=== PATIENT | female | born 1995 | race African-American/Black ===

== ENCOUNTER 2017-08-31 18:40 | Emergency (ER) | payer OTHER ==
[~2017-08-31] VITALS: Ht 152.4 cm; Wt 45.2 kg
[2017-08-31 22:45] LABS: HEMATOCRIT 37.4 % (36.0-46.0); HEMOGLOBIN 11.8 G/DL (11.9-15.5); MCH 24.5 PG (29.0-34.0); MCHC 31.6 G/DL (30.0-36.0); MCV 77.8 FL (83-99); PLATELET COUNT 363 K/uL (156-360); RBC DIS.WIDTH-CV 15.2 % (11.8-14.6); RBC DIS.WIDTH-SD 42.5 % (39-53); RED BLOOD COUNT 4.81 M/uL (3.80-5.20); WHITE BLOOD COUNT 10.9 K/uL (4.1-10.2)
[2017-08-31 23:00] LABS: ALBUMIN 4.7 g/dL (3.2-4.8); CHLORIDE 108 mEq/L (99-109); POTASSIUM 3.9 mEq/L (3.7-5.4); SODIUM 142 mEq/L (136-147)
[2017-08-31 23:02] LABS: GLUCOSE 106 mg/dL (70-99)
[2017-08-31 23:03] LABS: TOTAL PROTEIN 8.1 g/dL (6.4-8.3)
[2017-08-31 23:04] LABS: TOTAL BILIRUBIN 0.5 mg/dL (0.0-1.0)
[2017-08-31 23:06] LABS: ALKALINE PHOSPHATASE 71 IU/L (3-129); CREATININE 0.8 mg/dL (0.6-1.3); GFR ESTIMATE (CALCULATED) > 59 mL/min/
[2017-08-31 23:07] LABS: UREA NITROGEN (BUN) 20 mg/dL (9-23)
[2017-08-31 23:08] LABS: AST (GOT) 23 IU/L (2-34)
[2017-08-31 23:09] LABS: ALT (GPT) 15 IU/L (3-49)
[2017-09-01 01:35] LABS: QUANTITATIVE HCG < 4.0 MIU/ML
[2017-09-01] MEDS ORDERED: AUGMENTIN80 MG/ML PO (02:33)
[2017-09-01] MEDS ORDERED: TYLENOL325 MG PR (02:33)
[2017-09-01 03:19] VITALS: BP 114/76
== END 2017-09-01 03:20 | disposition home or self-care (01) ==
LOC: EME 18:40
PROVIDERS: Physician Assistant
DX: J02.0 Streptococcal pharyngitis (principal); R00.0 Tachycardia, unspecified; F79 Unspecified intellectual disabilities
CPT/HCPCS: 70491; 71045; 80053; 81003; 83605; 84702; 85027; 87040; 87502; 87651 90; 99281; 99285; J0696; J1885; J7030

== ENCOUNTER 2017-09-03 12:54 | Emergency (ER) | payer OTHER ==
[~2017-09-03] VITALS: Ht 157.5 cm; Wt 46.3 kg
[~2017-09-03 12:54] MED LIST: AUGMENTIN80 MG/ML PO; TYLENOL325 MG PR
[2017-09-03 14:01] LABS: HEMOGLOBIN 12.8 G/DL (11.9-15.5); MCH 24.9 PG (29.0-34.0); MCHC 31.2 G/DL (30.0-36.0); MCV 79.6 FL (83-99); RBC DIS.WIDTH-SD 42.5 % (39-53); RED BLOOD COUNT 5.15 M/uL (3.80-5.20); WHITE BLOOD COUNT 5.9 K/uL (4.1-10.2)
[2017-09-03 14:13] LABS: CHLORIDE 112 mEq/L (99-109); SODIUM 143 mEq/L (136-147)
[2017-09-03 14:15] LABS: GLUCOSE 85 mg/dL (70-99)
[2017-09-03 14:17] LABS: POTASSIUM 4.7 mEq/L (3.7-5.4)
[2017-09-03 14:19] LABS: CREATININE 0.7 mg/dL (0.6-1.3); GFR ESTIMATE (CALCULATED) > 59 mL/min/
[2017-09-03 14:20] LABS: UREA NITROGEN (BUN) 15 mg/dL (9-23)
[2017-09-03 14:33] LABS: PLAT.SUFFICIENCY ADEQUATE
[2017-09-03 14:53] LABS: APPEARANCE SL.HAZY ((CLEAR)); BILIRUBIN NEGATIVE; BLOOD LARGE; COLOR YELLOW ((YELLOW)); GLUCOSE (STRIP) NEGATIVE; KETONES 5; LEUKOCYTES NEGATIVE; NITRITE NEGATIVE; PROTEIN (STRIP) 30; SPECIFIC GRAVITY 1.021 (1.000-1.030); UROBILINOGEN 0.2 MG/DL (0.2-1.0)
[2017-09-03 15:09] LABS: BACTERIA NONE SEEN /HPF; EPITHELIAL CELLS RARE /HPF; MUCUS TRACE /LPF; RED BLOOD CELLS TNTC /HPF (0-5); UCUL ADDED? YES; WHITE BLOOD CELLS 0-5 /HPF (0-5)
[2017-09-03 15:22] LABS: PLATELET COUNT 177 K/uL (156-360)
[2017-09-03] MEDS ORDERED: LEVAQUIN750 MG PO (16:07)
[2017-09-03 16:40] VITALS: BP 103/77
== END 2017-09-03 16:42 | disposition home or self-care (01) ==
LOC: EME 12:54
DX: N39.0 Urinary tract infection, site not specified (principal); R41.82 Altered mental status, unspecified; F79 Unspecified intellectual disabilities; Z87.440 Personal history of urinary (tract) infections
CPT/HCPCS: 80048; 81003; 85027; 87086; 99281; 99285

== ENCOUNTER 2017-12-22 04:57 | Emergency (ER) | payer OTHER ==
[~2017-12-22] VITALS: Ht 154.9 cm; Wt 47.8 kg
[~2017-12-22 04:57] MED LIST changes: +LEVAQUIN750 MG PO
[2017-12-22 07:22] LABS: BASOPHIL (%) 0.4 % (0-1); EOSINOPHIL (%) 0.4 % (0-5); HEMOGLOBIN 10.9 G/DL (11.9-15.5); IMMATURE GRANULOCYTE (%) 0.1 % (0.0-0.7); LYMPHOCYTE (%) 27.8 % (15-42); LYMPHOCYTE COUNT 2.1 K/uL (1.0-2.8); MCHC 30.3 G/DL (30.0-36.0); MCV 75.9 FL (83-99); MONOCYTE (%) 9.6 % (3-12); MONOCYTE COUNT 0.7 K/uL (0-0.8); NEUTROPHIL (%) 61.7 % (45-76); NEUTROPHIL COUNT 4.6 K/uL (1.8-6.4); PLATELET COUNT 408 K/uL (156-360); RBC DIS.WIDTH-CV 16.1 % (11.8-14.6); RBC DIS.WIDTH-SD 43.9 % (39-53); RED BLOOD COUNT 4.74 M/uL (3.80-5.20); WHITE BLOOD COUNT 7.5 K/uL (4.1-10.2)
[2017-12-22 07:55] LABS: QUANTITATIVE HCG < 4.0 MIU/ML
[2017-12-22 07:59] LABS: CHLORIDE 104 MEQ/L (99-109); POTASSIUM 3.8 MEQ/L (3.7-5.4); SODIUM 139 MEQ/L (136-147)
[2017-12-22 08:04] LABS: CREATININE 0.8 MG/DL (0.6-1.3); GFR ESTIMATE (CALCULATED) > 59 mL/min/; GLUCOSE 89 mg/dL (70-99); UREA NITROGEN (BUN) 15 mg/dL (9-23)
[2017-12-22 09:23] LABS: APPEARANCE CLOUDY ((CLEAR)); BILIRUBIN NEGATIVE; BLOOD NEGATIVE; COLOR YELLOW ((YELLOW)); GLUCOSE (STRIP) NEGATIVE; KETONES NEGATIVE; LEUKOCYTES NEGATIVE; NITRITE NEGATIVE; PROTEIN (STRIP) NEGATIVE; UROBILINOGEN 0.2 MG/DL (0.2-1.0)
[2017-12-22 09:38] LABS: BACTERIA 1+ /HPF; EPITHELIAL CELLS 3+ /HPF; MUCUS 1+ /LPF; RED BLOOD CELLS 0-5 /HPF (0-5); WHITE BLOOD CELLS 0-5 /HPF (0-5)
[2017-12-22] MEDS ORDERED: CITRATE OF MAG296 ML PO (14:33)
[2017-12-22 17:34] VITALS: BP 112/76
== END 2017-12-22 17:41 | disposition home or self-care (01) ==
LOC: EME 04:57
PROVIDERS: Emergency Medicine
PROC: 0T9B70Z Drainage of Bladder with Drainage Device, Via Natural or Artificial Opening (ICD-10-PCS; principal; 2017-12-22)
DX: R33.9 Retention of urine, unspecified (principal); K59.00 Constipation, unspecified; N32.0 Bladder-neck obstruction; F79 Unspecified intellectual disabilities; M41.9 Scoliosis, unspecified
CPT/HCPCS: 71045; 74019; 74176; 80048; 81003; 83605; 84702; 85025; 87040; 99281; 99285; J2060

== ENCOUNTER 2018-04-02 18:34 | Emergency (ER) | payer OTHER ==
[~2018-04-02] VITALS: Ht 149.9 cm; Wt 46.4 kg
[~2018-04-02 18:34] MED LIST changes: +CITRATE OF MAG296 ML PO
[2018-04-02 20:33] LABS: ALBUMIN 4.5 g/dL (3.2-4.8); CHLORIDE 109 mEq/L (99-109); POTASSIUM 3.4 mEq/L (3.7-5.4); SODIUM 143 mEq/L (136-147)
[2018-04-02 20:36] LABS: GLUCOSE 108 mg/dL (70-99); TOTAL PROTEIN 8.1 g/dL (6.4-8.3)
[2018-04-02 20:37] LABS: BASOPHIL (%) 0.1 % (0-1); EOSINOPHIL (%) 0 % (0-5); HEMATOCRIT 34.6 % (36.0-46.0); HEMOGLOBIN 10.6 G/DL (11.9-15.5); IMMATURE GRANULOCYTE (%) 0.8 % (0.0-0.7); LYMPHOCYTE (%) 8.2 % (15-42); LYMPHOCYTE COUNT 1.2 K/uL (1.0-2.8); MCH 22.7 PG (29.0-34.0); MCHC 30.6 G/DL (30.0-36.0); MCV 74.1 FL (83-99); MONOCYTE (%) 5.7 % (3-12); MONOCYTE COUNT 0.8 K/uL (0-0.8); NEUTROPHIL (%) 85.2 % (45-76); NEUTROPHIL COUNT 12.3 K/uL (1.8-6.4); PLATELET COUNT 415 K/uL (156-360); RBC DIS.WIDTH-CV 16.2 % (11.8-14.6); RBC DIS.WIDTH-SD 43.1 % (39-53); RED BLOOD COUNT 4.67 M/uL (3.80-5.20); TOTAL BILIRUBIN 0.5 mg/dL (0.0-1.0); WHITE BLOOD COUNT 14.4 K/uL (4.1-10.2)
[2018-04-02 20:39] LABS: ALKALINE PHOSPHATASE 61 IU/L (3-129); CREATININE 0.9 mg/dL (0.6-1.3); GFR ESTIMATE (CALCULATED) > 59 mL/min/
[2018-04-02 20:40] LABS: UREA NITROGEN (BUN) 18 mg/dL (9-23)
[2018-04-02 20:41] LABS: AST (GOT) 13 IU/L (2-34); DIRECT BILIRUBIN 0.2 mg/dL (0.0-0.3)
[2018-04-02 20:42] LABS: ALT (GPT) 10 IU/L (3-49)
[2018-04-02 20:43] LABS: LIPASE 10 U/L (1.0-51.0)
[2018-04-02 20:43] LABS: APPEARANCE CLOUDY ((CLEAR)); BILIRUBIN NEGATIVE; BLOOD SMALL; COLOR YELLOW ((YELLOW)); GLUCOSE (STRIP) NEGATIVE; KETONES NEGATIVE; LEUKOCYTES NEGATIVE; NITRITE NEGATIVE; PROTEIN (STRIP) 30; SPECIFIC GRAVITY 1.028 (1.000-1.030); UROBILINOGEN 0.2 MG/DL (0.2-1.0)
[2018-04-02 20:51] LABS: QUANTITATIVE HCG < 4.0 MIU/ML
[2018-04-02 21:18] LABS: BACTERIA 1+ /HPF; EPITHELIAL CELLS 4+ /HPF; MUCUS NONE SEEN /LPF; RED BLOOD CELLS 0-5 /HPF (0-5); UCUL ADDED? NO; WHITE BLOOD CELLS 0-5 /HPF (0-5)
[2018-04-02] MEDS ORDERED: FLEET ENEMA-AD118 ML PR (22:09)
[2018-04-02 22:32] VITALS: BP 128/77
== END 2018-04-02 22:49 | disposition home or self-care (01) ==
LOC: EME 18:34
PROVIDERS: Emergency Medicine
DX: K59.00 Constipation, unspecified (principal); Z87.440 Personal history of urinary (tract) infections; F79 Unspecified intellectual disabilities
CPT/HCPCS: 74018; 80048; 80076; 81003; 83690; 84702; 85025; 99281; 99285